=== PATIENT | male | born 1980 | race Caucasian/White ===

== ENCOUNTER 2023-01-31 18:58 | Emergency (ER) | payer MEDICAID ==
[~2023-01-31] VITALS: Ht 160 cm; Wt 67.2 kg
[2023-01-31 19:25] VITALS: O2SAT 98
[2023-01-31] MEDS ORDERED: IBUPROFEN 400MG TABLET PO ONE (22:30)
[2023-01-31] MEDS ORDERED: TETRACAINE 0.5% OPHTH DROPS 4ML RIGHTEYE ONE (22:30)
[2023-01-31] MEDS ORDERED: FLUORESCEIN SODIUM 1MG/STRIP RIGHTEYE ONE (22:30)
[2023-01-31 22:35] VITALS: BP 132/84
[2023-01-31] MEDS ORDERED: POLY10DR RIGHTEYE (22:55)
[2023-01-31] MEDS ORDERED: IBUP-2028 MT (22:55)
[2023-01-31 23:11] VITALS: PULSE 83; RESP 16; TEMP 98.6
== END 2023-01-31 23:13 | disposition home or self-care (01) ==
LOC: ER 18:58
DX: H57.11 Ocular pain, right eye (principal); H10.9 Unspecified conjunctivitis
CPT/HCPCS: 99283